=== PATIENT | male | born 1985 | race Caucasian/White ===

== ENCOUNTER 2019-11-06 20:50 | Emergency (ER) | payer MEDICAID ==
[~2019-11-06] VITALS: Ht 167.6 cm; Wt 77.3 kg
[2019-11-06 20:56] VITALS: Ht 167.6 cm; Wt 77.3 kg
[2019-11-06 23:08] VITALS: BP 118/68
== END 2019-11-06 23:09 | disposition home or self-care (01) ==
LOC: D.ER 20:50
DX: S00.93XA Contusion of unspecified part of head, initial encounter (principal); F10.129 Alcohol abuse with intoxication, unspecified; Y90.9 Presence of alcohol in blood, level not specified; S16.1XXA Strain of muscle, fascia and tendon at neck level, initial encounter; S40.012A Contusion of left shoulder, initial encounter; V89.0XXA Person injured in unspecified motor-vehicle accident, nontraffic, initial encounter; Y93.9 Activity, unspecified; Y92.9 Unspecified place or not applicable